=== PATIENT | male | born 1985 | race Caucasian/White ===

== ENCOUNTER 2017-09-25 13:32 | Outpatient (RCR) | payer OTHER ==
[~2017-09-25 13:32] MED LIST: NO HOME MEDICATIONS
== END 2017-12-24 | disposition home or self-care (01) ==
LOC: WSOH
DX: S39.012A Strain of muscle, fascia and tendon of lower back, initial encounter (principal); X50.0XXA Overexertion from strenuous movement or load, initial encounter; Y99.0 Civilian activity done for income or pay